=== PATIENT | female | born 1980 | race Caucasian/White ===

== ENCOUNTER 2016-05-16 10:48 | Outpatient (CLI) | payer BC ==
--- NOTE | 2016-05-16 14:58 | OP Clinic Progress Note ---
REFERRING PHYSICIAN: Dr. Jose Morales Dear Dr. Morales: REASON FOR VISIT: I had the pleasure of seeing Cora Acosta in follow up. As you know, she was sent to me for positive double-stranded DNA. She has no other complaints. Her diagnosis of multiple sclerosis has been confirmed. Her [facility] testing revealed negative double-stranded DNA. An CASSIE of 39 units or 1:80. Specific testing for lupus, Sjogren's, scleroderma, myositis, rheumatoid arthritis, and phospholipid antibody syndrome were all negative. PHYSICAL EXAMINATION: GENERAL: On exam, she looks well. VITAL SIGNS: Weight: 167. T: 97.8, R: 12, heart rate 70, BP: 120/70. PLAN: I had a long discussion with the patient regarding the nature of her testing. I gave her a copy of her testing and assured her that at this time there was no evidence of systemic lupus. I discussed the significance of low positive CASSIE' s. cc: Dr. Jose Morales. Enclosure: [facility] testing. MTDD
== END 2016-05-16 10:50 ==
LOC: RHEU 10:48
PROVIDERS: ATTEND Internal Medicine
DX: R94.8 Abnormal results of function studies of other organs and systems (principal)
CPT/HCPCS: 99213